=== PATIENT | male | born 1965 | race Caucasian/White ===

== ENCOUNTER 2025-05-16 11:00 | Outpatient (AMB) | payer OTHER, SELFPAY ==
--- NOTE | 2025-05-16 11:05 | A.OFFVIS_ITS ---
Intake Visit Reasons: 6 mnts PD Allergies No Known Allergies Allergy (Verified 05/14/25 08:49) Medication List - Last Reconciled 05/16/25 by Alek Byrnes MD aspirin 81 mg PO DAILY atorvastatin 10 mg PO DAILY bupropion HCl SR 100 mg PO QAM carbidopa-levodopa 25-100 mg tabs PO gabapentin 300 mg PO DAILY metoprolol succinate ER 50 mg PO DAILY HPI Comments Details: 59 y/o man with HTN, MVD, anxiety, REM sleep behavior disorder and Parkinson disease. Symptoms were initially noted in 2019 when he developed difficulty using right hand and a right hand tremor. He was seen about 5 hours after his morning dose. He was having right hand tremor and slowing of hand use. Apparently he was still having nighttime symptoms during sleep gabapentin has not made much difference. [facility] Medical History (Updated 05/16/25 @ 11:08 by Alek Byrnes MD) Parkinson disease REM sleep behavior disorder Dystonia of foot Anxiety Cerebral microvascular disease HTN (hypertension) with goal to be determined Review of Systems Const Details: Constitutional:?No fever, chills, fatigue, weight loss, or night sweats. HEENT:?No headache, vision changes, hearing loss, nasal congestion, sore throat. Neurological:?He is c/o right hand tremor. Psychiatric:?No anxiety, depression, mood swings, sleep disturbance, or hallucinations. Endocrine:?No heat/cold intolerance, polydipsia, polyuria, or hair/skin changes. Hematologic/Lymphatic:?No easy bruising, bleeding, or lymphadenopathy. Integumentary (Skin):?No rash, lesions, itching, or color changes. ? Physical Exam Neuro Other: Mental Status: Alert and oriented to person, place, and time. Normal attention. Normal spontaneous speech, fluency, and comprehension. No obvious issues with mood and memory. Affect is appropriate. Cranial Nerves: CN II: Visual serrano full to confrontation, visual acuity intact. CN III, IV, : Pupils equal, round, reactive to light and accommodation. Extraocular movements are normal. CN V: Facial sensation is normal. CN VII: Facial movements symmetrical. CN VIII: Hearing intact to bedside conversation is normal. CN IX, X: Palate elevates symmetrically. CN XI: Shoulder shrug and head turn symmetrical. CN XII: Tongue midline without atrophy or fasciculations. Extrapyramidal: Full facial expressions and blinking. No rigidity. Movements are appropriate with no tremor or abnormality. Speech: Normal; no dysarthria or tremor. Assessment & Plan Assessment & Plan (1) Parkinson disease: Code(s): G20.A1 - Parkinson's disease without dyskinesia, without mention of fluctuations Category: Medical Qualifiers: Dyskinesia presence: without dyskinesia Fluctuating manifestations: without fluctuating manifestations Qualified Code(s): G20.A1 - Parkinson's disease without dyskinesia, without mention of fluctuations (2) Controlled REM sleep behavior disorder: Code(s): G47.52 - REM sleep behavior disorder Category: Medical (3) Anxiety: Code(s): F41.9 - Anxiety disorder, unspecified Category: Medical Plan Impression: 1. Parkinson's disease 2. REM sleep behavior disorder 3. Anxiety disorder Recommendations: 1. Increase carbidopa/levodopa to 2 tablets 4 times a day taking a dose every 4 hours. 2. Increase gabapentin to 2 tablets at night. If this would not work, alternate medicine would be considered. 3. Buproprion 100mg a day Medications: New carbidopa-levodopa 25-100 mg 2 tabs PO QID 720 tabs 1RF 90 days bupropion HCl SR 100 mg PO QAM 90 tabs 1RF Coding Level of Care Code Tele Est Pt Level 4 (49381) Diagnoses Parkinson's disease without dyskinesia or fluctuating manifestations G20.A1 Dyskinesia presence: without dyskinesia Fluctuating manifestations: without fluctuating manifestations Controlled REM sleep behavior disorder G47.52 Anxiety F41.9
--- OUTSIDE RECORDS SUMMARY | 2025-05-16 11:48 | XMS_ITS ---
Author Name [facility] Organization Unknown Care Team Organization Name Specialty Phone Email Start Date End Da te [facility] Termed, PROVIDER Primary Care 12/29/202205/24 [facility] Smitha L[facility] 08/31/2022
--- OUTSIDE RECORDS SUMMARY | 2025-05-16 11:48 | XMS_ITS | Clinical Summary ---
Author Organization [facility] Address [address] [place] [address] Care Team Providers Care Dynamometer Repairer Name Role Phone Kiran Damon MD Primary Care Provider [phone] Allergies No known active allergies Medications Medication Sig Dispensed Refills Start Date End Date Status amLODIPine (NORVASC) tablet 2.5 mg Take 1 tablet (2.5 mg total) by mouth daily. 0 Active atorvastatin (LIPITOR) tablet 10 mg Take 1 tablet (10 mg total) by mouth every evening. 0 Active buPROPion (WELLBUTRIN) 100 MG tablet Take 1 tablet (100 mg total) by mouth 3 (three) times a day. 0 Active calcipotriene (DOVONOX) 0.005 % ointment Apply topically 2 (two) times a day. 0 Active carbidopa-levodopa (SINEMET) 25-100 MG per tablet Take by mouth 3 (three) times a day. 0 Active Clobetasol Prop Emollient Base 0.05 % emollient cream Apply topically 2 (two) times a day. 0 Active metoprolol succinate (TOPROL-XL) 24 hr tablet 50 mg Take by mouth daily. 0 Active Active Problems No known active problems Social History Tobacco Use Types Packs/Day Years Used Date Smoking Tobacco: Never Smokeless Tobacco: Never Tobacco Cessation:Counseling Given: Not Answered Alcohol Use Standard Drinks/Week Comments Not Currently 0 (1 standard drink = 0.6 oz pur e alcohol) 2 martinis a night Sex and Gender Information Value Date Recorded Sex Assigned at Male 05/03/2024 3:03 PM EDT Gender Identity Not on file Sexual Orientation Not on file Job Start Date Occupation Industry Not on file Not on file Not on file Last Filed Vital Signs Vital Sign Reading Time Taken Comments Blood Pressure 161/85 06/14/2024 10:58 AM EDT Pulse 72 06/14/2024 10:58 AM EDT Temperature 36.8 C (98.2 F) 06/14/2024 10:58 AM EDT Respiratory Rate - - Oxygen Saturation 100% 06/14/2024 10:58 AM EDT Inhaled Oxygen Concentration - - Weight 68.5 kg (151 lb) 06/14/2024 10:58 AM EDT Height 170.2 cm (5' 7 ) 05/31/2024 1:23 PM EDT Body Mass Index 23.65 05/31/2024 1:23 PM EDT Plan of Treatment Health Maintenance Due Date Last Done Comments Hepatitis C Screening 1963 Depression Screening 1975 Preventative Health Evaluation 1981 Colon Cancer Screening (Colonoscopy) 2008 COVID-19 Vaccine ( season) 2024 06/30/2022, 06/27/2021, 02/19/2021, Additional history exists Influenza Vaccine (#1) 2025 9, 08/20/2016, 08/19/2015, Additional history exists DTap / Tdap / Td (2 - Td or Tdap) 12/13/2027 12/13/2017 RSV Adult > 60+ Yrs or (1 - 1-dose 75+ series) 2038 Shingrix-Zoster Vaccine Completed 11/12/2019, 09/10 Hepatitis B Vaccines Aged Out No long er eligible based on patient's age to complete this topic Pneumococcal Vaccine Aged Out No long er eligible based on patient's age to complete this topic RSV Ped < 20 months Aged Out No longe r eligible based on patient's age to complete this topic Care Teams Dynamometer Repairer Relationship Specialty Start Date End Date Kiran Damon MD PCP - General Internal Medicine 05/03/24
== END 2025-05-16 11:18 | disposition home or self-care (01) ==
LOC: HO.HSM 11:00
PROVIDERS: PCP Internal Medicine; Visit Provider Psychiatry & Neurology Neurology
DX: G20.A1 Parkinson's disease without dyskinesia, without mention of fluctuations (principal); G47.52 REM sleep behavior disorder; F41.9 Anxiety disorder, unspecified
CPT/HCPCS: 99214